=== PATIENT | female | born 1970 | race Caucasian/White ===

== ENCOUNTER 2016-09-26 15:40 | Emergency (ER) | payer BC ==
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
--- NOTE | 2016-09-26 16:14 | ED CLINICAL REPORT ---
Clinical Report - Physicians/Mid Levels [facility] [address] [place] [address] 09/26/2016 15:42 Patient: BENNIE SHAH Time Seen: 1559; upon arrival, initial patient contact, initial documentation, patient care assumed. Arrived- By private vehicle. Historian- patient. HISTORY OF PRESENT ILLNESS Chief Complaint: COUGH, SORE THROAT and SINUS PAIN. This started several months ago and is still present. The illness is described as moderate. No difficulty breathing or fever. She has had nasal congestion, sinus pressure, sinus drainage and ear pain. Additional history - No known contact with a sick individual. No recent travel. Similar symptoms previously: None. Recent medical care: The patient was seen recently in a clinic. ( went to clinic 09/24, dx sinusitis, given rx flonase and doxycycline, abx make her sick, but she can keep them down with zofran). REVIEW OF SYSTEMS The patient has had a moderate, pressure-like frontal and facial headache. She has had nausea. No vomiting or diarrhea. All systems otherwise negative, except as recorded above. PAST HISTORY Negative. SOCIAL HISTORY Never smoker. Not exposed to second-hand smoke at home. No alcohol use or drug use. No recent travel. Is a local resident. FAMILY HISTORY Negative. ADDITIONAL NOTES The nursing notes have been reviewed with agreement regarding the chief complaint, HPI, ROS, PMH and patient medications and allergies. PHYSICAL EXAM Vital Signs: 09/26/2016 16:28 BP: 130/76. HR: 76. RR: 16. O2 saturation: 98%. Temp: 98.4 F. Pain level now: 07/07. Have been reviewed as normal and appear to be correct. Appearance: Alert. No acute distress. Head: Tenderness present to percussion/palpation of the sinuses: mild right and left frontal tenderness, maxillary tenderness, ethmoid tenderness. Eyes: Pupils equal, round and reactive to light. Eyes normal inspection. ENT: Ears normal. Nose abnormal. Pharynx normal. Uvula midline. Neck: Normal inspection. Neck supple. CVS: Normal heart rate and rhythm. Heart sounds normal. Pulses normal. Respiratory: No respiratory distress. Breath sounds normal. Back: Normal inspection. Skin: Skin warm and dry. Normal skin color. No rash. Normal skin turgor. Extremities: Extremities exhibit normal ROM. No lower extremity edema. Neuro: Oriented X 3. No motor deficit. No sensory deficit. PROGRESS AND PROCEDURES Course of Care: tx options discussed, pt not on abx long enough to work, changing abx due to nausea, prescribe more zofran, resistance bacteria if changing abx in middle of course, nedi pot and saline sinus wash, otc nsaid for lowry agreed to get sinus wash, continue current course of tx with more zofran and nsaid for lowry. Patient counseled in person regarding the patient's stable condition and diagnosis. Differential Diagnosis: Other possible considerations: sinusitis, sinus abscess, uri, flu, viral illness, pneumonia, mastoiditis, aoe, aom. Above considerations are based on history and physical exam. Differential diagnosis was discussed with patient. Disposition: Discharged home in good and unchanged condition (16:14). Condition: good and stable. CLINICAL IMPRESSION Acute maxillary, ethmoidal and frontal sinusitis INSTRUCTIONS Drink plenty of fluids for the next 24 hours until better. (continue with current prescriptions as previously directed and discussed, over the counter saline sinus wash and something for headache). Warnings: GENERAL WARNINGS: Return or contact your physician immediately if your condition worsens or changes unexpectedly, if not improving as expected, or if other problems arise. Specifically return if problem worsens. Prescription Medications: Zofran 4 mg: Take 1 orally every six hours as needed for nausea/vomiting. Dispense ten (10). No refills. Substitution is permissible. Follow-up: Follow up with your doctor in about five days as needed. Call for an appointment. Summary of care provided to patient. Understanding of the discharge instructions verbalized by patient. (Electronically signed by Pebbles Knowles A.R.N.P. 09/26/2016 16:43)
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
--- NOTE | 2016-09-26 19:37 | ED MED RECONCILIATION SUMMARY ---
Patient: BENNIE SHAH Medication Reconciliation Report [facility] VisitID: [id number] [address] [place] [address] 46y, F Registration Date/Time: 09/26/2016 Weight: 90.7 kg Height/Length: 67 in. BMI: 31.3 ALLERGIES: Environmental The patient's Home Medications are listed below: THE FOLLOWING MEDICATIONS NEED TO BE RECONCILED: Doxycycline Monohydrate Oral Flonase Nasal The source(s) of the original Home Medication information: Not obtained. The following Medications were given to the patient in the Emergency Department: None. The following Medications were prescribed to the patient: Zofran 4 mg: Take 1 orally every six hours as needed for nausea/vomiting. Dispense ten (10). No refills. Substitution is permissible. -- Pebbles Knowles A.R.N.P.
--- NOTE | 2016-09-26 19:37 | ED MAR SUMMARY ---
..... Medication Administration Record [facility] [address] [id number] Patient: BENNIE SHAH Visit ID: [id number] 46y, F Weight: 90.7 kg Height/Length: 67 in BMI: 31.3 ALLERGIES: Environmental
--- NOTE | 2016-09-26 19:37 | ED MED RECONCILIATION SUMMARY ---
Patient: BENNIE SHAH Medication Reconciliation Report [facility] VisitID: [id number] [address] [place] [address] 46y, F Registration Date/Time: 09/26/2016 Weight: 90.7 kg Height/Length: 67 in. BMI: 31.3 ALLERGIES: Environmental The patient's Home Medications are listed below: THE FOLLOWING MEDICATIONS NEED TO BE RECONCILED: Doxycycline Monohydrate Oral Flonase Nasal The source(s) of the original Home Medication information: Not obtained. The following Medications were given to the patient in the Emergency Department: None. The following Medications were prescribed to the patient: Zofran 4 mg: Take 1 orally every six hours as needed for nausea/vomiting. Dispense ten (10). No refills. Substitution is permissible. -- Pebbles Knowles A.R.N.P.
--- NOTE | 2016-09-26 19:37 | ED DISCHARGE INSTRUCTIONS ---
Patient: BENNIE SHAH General Instructions [facility] VisitID: [id number] [place] [address] 46y, F Registration Date/Time: 09/26/2016 Acute maxillary, ethmoidal and frontal sinusitis INSTRUCTIONS Drink plenty of fluids for the next 24 hours until better. (continue with current prescriptions as previously directed and discussed, over the counter saline sinus wash and something for headache). Warnings: GENERAL WARNINGS: Return or contact your physician immediately if your condition worsens or changes unexpectedly, if not improving as expected, or if other problems arise. Specifically return if problem worsens. Prescription Medications: Zofran 4 mg: Take 1 orally every six hours as needed for nausea/vomiting. Dispense ten (10). No refills. Substitution is permissible. Follow-up: Follow up with your doctor in about five days as needed. Call for an appointment. Summary of care provided to patient. Understanding of the discharge instructions verbalized by patient. ADDITIONAL INFORMATION Sinusitis [Abx Tx] The sinuses are air-filled spaces within the bones of the face. They connect to the inside of the nose. Sinusitis is an inflammation of the tissue lining the sinus cavity. Sinus inflammation can occur during a cold or hay-fever (allergies to pollens and other particles in the air) and cause symptoms of sinus congestion and fullness. A sinus infection causes fever, headache and facial pain. There is usually green or yellow drainage from the nose or into the back of the throat (post-nasal drip). Antibiotics are prescribed to treat this condition. Home Care: Drink plenty of water, hot tea, and other liquids to stay well hydrated. This thins the mucus and promotes sinus drainage. Apply heat to the painful areas of the face. Use a towel soaked in hot water. Or, certified nurse operating room the shower and direct the hot spray onto your face. This is a good way to inhale warm water vapor and get heat on your face at the same time. (Cover your mouth and nose with your hands so you can still breathe as you do this.) Use a vaporizer with products such as VicSunnova VapoRub (contains menthol) at night. Suck on peppermint, menthol or eucalyptus hard candies during the day. An expectorant containing guaifenesin (such as Robitussin), helps to thin the mucus and promote drainage from the sinuses. Qocz-uiw-bggwyrl decongestants may be used unless a similar medicine was prescribed. Nasal sprays work the fastest. Use one that contains phenylephrine (Boris-synephrine, Sinex and others) or oxymetazoline (Afrin). First blow the nose gently to remove mucus, then apply the drops. Do not use these medicines more often than directed on the label or for more than three days or symptoms may worsen. You may also use tablets containing pseudoephedrine (Sudafed). Many sinus remedies combine ingredients, which may increase side effects. Read the labels or ask the pharmacist for help. NOTE: Persons with high blood pressure should not use decongestants. They can raise blood pressure. Antihistamines are useful if allergies are a cause of your sinusitis. The mildest one is chlorpheniramine (available without a prescription). The dose for adults is 8-12mg three times a day. [NOTE: Do not use chlorpheniramine if you have glaucoma or if you are a man with trouble urinating due to an enlarged prostate.] Claritin (loratidine) is an antihistamine that causes less drowsiness and is a good alternative for daytime use. Do not use nasal rinses or irrigation during an acute sinus infection, unless advised by your doctor. Rinsing may spread the infection to other sinuses. You may use acetaminophen (Tylenol) or ibuprofen (Motrin, Advil) to control pain, unless another pain medicine was prescribed. [ NOTE: If you have chronic liver or kidney disease or ever had a stomach ulcer, talk with your doctor before using these medicines.] (Aspirin should never be used in anyone under 18 years of age who is ill with a fever. It may cause severe liver damage.) Finish the full course, even if you are feeling better after a few days. Follow Up with your doctor or this facility in one week or as instructed by our staff if not improving. Get Prompt Medical Attention if any of the following occur: Facial pain or headache becomes more severe Stiff neck Unusual drowsiness or confusion, or not acting like your normal self Swelling of the forehead or eyelids Vision problems including blurred or double vision Fever of 100.4F (38C) or higher, or as directed by your healthcare provider Seizure Ondansetron Oral disintegrating tablet What is this medicine? ONDANSETRON (on REGINALD se zane) is used to treat nausea and vomiting caused by chemotherapy. It is also used to prevent or treat nausea and vomiting after surgery. How should I use this medicine? These tablets are made to dissolve in the mouth. Do not try to push the tablet through the foil backing. With dry hands, peel away the foil backing and gently remove the tablet. Place the tablet in the mouth and allow it to dissolve, then swallow. While you may take these tablets with water, it is not necessary to do so. Talk to your crm functional analyst regarding the use of this medicine in children. Special care may be needed. What side effects may I notice from receiving this medicine? Side effects that you should report to your doctor or health career development coordinator as soon as possible: allergic reactions like skin rash, itching or hives, swelling of the face, lips, or tongue breathing problems dizziness fast or irregular heartbeat feeling faint or lightheaded, falls fever and chills swelling of the hands and feet tightness in the chest Side effects that usually do not require medical attention (report to your doctor or health career development coordinator if they continue or are bothersome): constipation or diarrhea headache What may interact with this medicine? Do not take this medicine with any of the following medications: -apomorphine -cisapride -dofetilide -dronedarone -pimozide -thioridazine -ziprasidone This medicine may also interact with the following medications: -carbamazepine -phenytoin -rifampicin -tramadol -other medicines that prolong the QT interval (cause an abnormal heart rhythm) What if I miss a dose? If you miss a dose, take it as soon as you can. If it is almost time for your next dose, take only that dose. Do not take double or extra doses. Where should I keep my medicine? Keep out of the reach of children. Store between 2 and 30 degrees C (36 and 86 degrees F). Throw away any unused medicine after the expiration date. What should I tell my health care provider before I take this medicine? They need to know if you have any of these conditions: heart disease history of irregular heartbeat liver disease low levels of magnesium or potassium in the blood an unusual or allergic reaction to ondansetron, granisetron, other medicines, foods, dyes, or preservatives or trying to get breast-feeding What should I watch for while using this medicine? Check with your doctor or health career development coordinator as soon as you can if you have any sign of an allergic reaction. You have been given the following additional information: Sinusitis, Abx Tx Ondansetron Oral disintegrating tablet (Electronically signed by Pebbles Knowles A.R.N.P. 09/26/2016 16:43)
--- NOTE | 2016-09-26 19:37 | ED DISCHARGE INSTRUCTIONS ---
Patient: BENNIE SHAH General Instructions [facility] VisitID: [id number] [place] [address] 46y, F Registration Date/Time: 09/26/2016 Acute maxillary, ethmoidal and frontal sinusitis INSTRUCTIONS Drink plenty of fluids for the next 24 hours until better. (continue with current prescriptions as previously directed and discussed, over the counter saline sinus wash and something for headache). Warnings: GENERAL WARNINGS: Return or contact your physician immediately if your condition worsens or changes unexpectedly, if not improving as expected, or if other problems arise. Specifically return if problem worsens. Prescription Medications: Zofran 4 mg: Take 1 orally every six hours as needed for nausea/vomiting. Dispense ten (10). No refills. Substitution is permissible. Follow-up: Follow up with your doctor in about five days as needed. Call for an appointment. Summary of care provided to patient. Understanding of the discharge instructions verbalized by patient. ADDITIONAL INFORMATION Sinusitis [Abx Tx] The sinuses are air-filled spaces within the bones of the face. They connect to the inside of the nose. Sinusitis is an inflammation of the tissue lining the sinus cavity. Sinus inflammation can occur during a cold or hay-fever (allergies to pollens and other particles in the air) and cause symptoms of sinus congestion and fullness. A sinus infection causes fever, headache and facial pain. There is usually green or yellow drainage from the nose or into the back of the throat (post-nasal drip). Antibiotics are prescribed to treat this condition. Home Care: Drink plenty of water, hot tea, and other liquids to stay well hydrated. This thins the mucus and promotes sinus drainage. Apply heat to the painful areas of the face. Use a towel soaked in hot water. Or, studio engineer the shower and direct the hot spray onto your face. This is a good way to inhale warm water vapor and get heat on your face at the same time. (Cover your mouth and nose with your hands so you can still breathe as you do this.) Use a vaporizer with products such as VicFerevo VapoRub (contains menthol) at night. Suck on peppermint, menthol or eucalyptus hard candies during the day. An expectorant containing guaifenesin (such as Robitussin), helps to thin the mucus and promote drainage from the sinuses. Pfiy-cke-crwvayj decongestants may be used unless a similar medicine was prescribed. Nasal sprays work the fastest. Use one that contains phenylephrine (Boris-synephrine, Sinex and others) or oxymetazoline (Afrin). First blow the nose gently to remove mucus, then apply the drops. Do not use these medicines more often than directed on the label or for more than three days or symptoms may worsen. You may also use tablets containing pseudoephedrine (Sudafed). Many sinus remedies combine ingredients, which may increase side effects. Read the labels or ask the pharmacist for help. NOTE: Persons with high blood pressure should not use decongestants. They can raise blood pressure. Antihistamines are useful if allergies are a cause of your sinusitis. The mildest one is chlorpheniramine (available without a prescription). The dose for adults is 8-12mg three times a day. [NOTE: Do not use chlorpheniramine if you have glaucoma or if you are a man with trouble urinating due to an enlarged prostate.] Claritin (loratidine) is an antihistamine that causes less drowsiness and is a good alternative for daytime use. Do not use nasal rinses or irrigation during an acute sinus infection, unless advised by your doctor. Rinsing may spread the infection to other sinuses. You may use acetaminophen (Tylenol) or ibuprofen (Motrin, Advil) to control pain, unless another pain medicine was prescribed. [ NOTE: If you have chronic liver or kidney disease or ever had a stomach ulcer, talk with your doctor before using these medicines.] (Aspirin should never be used in anyone under 18 years of age who is ill with a fever. It may cause severe liver damage.) Finish the full course, even if you are feeling better after a few days. Follow Up with your doctor or this facility in one week or as instructed by our staff if not improving. Get Prompt Medical Attention if any of the following occur: Facial pain or headache becomes more severe Stiff neck Unusual drowsiness or confusion, or not acting like your normal self Swelling of the forehead or eyelids Vision problems including blurred or double vision Fever of 100.4F (38C) or higher, or as directed by your healthcare provider Seizure Ondansetron Oral disintegrating tablet What is this medicine? ONDANSETRON (on REGINALD se zane) is used to treat nausea and vomiting caused by chemotherapy. It is also used to prevent or treat nausea and vomiting after surgery. How should I use this medicine? These tablets are made to dissolve in the mouth. Do not try to push the tablet through the foil backing. With dry hands, peel away the foil backing and gently remove the tablet. Place the tablet in the mouth and allow it to dissolve, then swallow. While you may take these tablets with water, it is not necessary to do so. Talk to your lining ironer regarding the use of this medicine in children. Special care may be needed. What side effects may I notice from receiving this medicine? Side effects that you should report to your doctor or health intensive care ambulance paramedic as soon as possible: allergic reactions like skin rash, itching or hives, swelling of the face, lips, or tongue breathing problems dizziness fast or irregular heartbeat feeling faint or lightheaded, falls fever and chills swelling of the hands and feet tightness in the chest Side effects that usually do not require medical attention (report to your doctor or health intensive care ambulance paramedic if they continue or are bothersome): constipation or diarrhea headache What may interact with this medicine? Do not take this medicine with any of the following medications: -apomorphine -cisapride -dofetilide -dronedarone -pimozide -thioridazine -ziprasidone This medicine may also interact with the following medications: -carbamazepine -phenytoin -rifampicin -tramadol -other medicines that prolong the QT interval (cause an abnormal heart rhythm) What if I miss a dose? If you miss a dose, take it as soon as you can. If it is almost time for your next dose, take only that dose. Do not take double or extra doses. Where should I keep my medicine? Keep out of the reach of children. Store between 2 and 30 degrees C (36 and 86 degrees F). Throw away any unused medicine after the expiration date. What should I tell my health care provider before I take this medicine? They need to know if you have any of these conditions: heart disease history of irregular heartbeat liver disease low levels of magnesium or potassium in the blood an unusual or allergic reaction to ondansetron, granisetron, other medicines, foods, dyes, or preservatives or trying to get breast-feeding What should I watch for while using this medicine? Check with your doctor or health intensive care ambulance paramedic as soon as you can if you have any sign of an allergic reaction. You have been given the following additional information: Sinusitis, Abx Tx Ondansetron Oral disintegrating tablet (Electronically signed by Pebbles Knowles A.R.N.P. 09/26/2016 16:43)
--- NOTE | 2016-09-26 19:37 | ED MAR SUMMARY ---
..... Medication Administration Record [facility] [address] [place], [place] [id number] Patient: BENNIE SHAH Visit ID: [id number] 46y, F Weight: 90.7 kg Height/Length: 67 in BMI: 31.3 ALLERGIES: Environmental
== END 2016-09-26 16:25 | disposition home or self-care (01) ==
LOC: ED SRH 15:40
DX: J01.00 Acute maxillary sinusitis, unspecified (principal); J01.20 Acute ethmoidal sinusitis, unspecified; J01.10 Acute frontal sinusitis, unspecified

== ENCOUNTER 2016-10-06 10:09 | Emergency (ER) | payer BC ==
--- NOTE | 2016-10-06 11:38 | ED CLINICAL REPORT ---
Clinical Report - Physicians/Mid Levels [facility] [address] [place] [address] 10/06/2016 10:11 Patient: BENNIE SHAH Time Seen: 10:21. Arrived- By private vehicle. Historian- patient. HISTORY OF PRESENT ILLNESS Chief Complaint: SINUS PAIN. EAR ACHE. This started about 2 weeks ago and is still present. It was gradual in onset and has been constant and waxing/waning. The illness is described as severe. No cough, sputum production, difficulty breathing or chest discomfort or pain. No fever or chills. She has had nasal congestion, sinus pressure and ear pain. Similar symptoms previously: Recent medical care: The patient was seen recently at this facility and another facility. Seen for similar symptoms. Diagnosis: sinusitis. ( she was prescribed doxycycline but says she has not been able to "keep this down" it causes nausea and she has been vomiting it up. Additionally she was given a prescription for Flonase.). REVIEW OF SYSTEMS No chills, fever, sweats, calf pain or chest pain. No cough, difficulty breathing, pedal edema, palpitations or abdominal pain. No constipation, diarrhea, vomiting or urinary problems. The patient has had nausea (she attributes this to the doxycycline). All systems otherwise negative, except as recorded above. PAST HISTORY Problems: Sinus Problems. Ear Infection. Medications: Zyrtec otc. Doxycycline Monohydrate Oral. Flonase Nasal. Allergies: Environmental. SOCIAL HISTORY Never smoker. No alcohol use or drug use. FAMILY HISTORY No significant family medical history. ADDITIONAL NOTES The nursing notes have been reviewed. PHYSICAL EXAM Vital Signs: 10/06/2016 10:26 BP: 128/82. HR: 54. RR: 20. O2 saturation: 99%. Temp: 98.2 F. Pain level now: 1010. Have been reviewed. Appearance: Alert. Head: Tenderness present to percussion/palpation of the sinuses. Eyes: Pupils equal, round and reactive to light. ENT: Abnormal ear exam. (bilateral TMs retracted without effusion). Uvula midline. No pharyngeal erythema or tonsillar exudate. (harrington mucous membranes with posterior lymphoid hyperplasia). Neck: Normal inspection. Neck supple. No lymphadenopathy. CVS: Normal heart rate and rhythm. Heart sounds normal. Respiratory: No respiratory distress. Breath sounds normal. Abdomen: Soft and nontender. No organomegaly. Back: Normal inspection. Skin: Skin warm and dry. Normal skin color. No rash. Normal skin turgor. Extremities: Extremities exhibit normal ROM. No calf tenderness. No lower extremity edema. PROGRESS AND PROCEDURES Course of Care: Patient is stable. Patient/family counseled. Old medical records reviewed. Disposition: Discharged. Condition: stable. CLINICAL IMPRESSION Sinusitis Right and left eustachian tube dysfunction INSTRUCTIONS Drink plenty of fluids. Warnings: Further evaluation is necessary. GENERAL WARNINGS: Return or contact your physician immediately if your condition worsens or changes unexpectedly, if not improving as expected, or if other problems arise. Your Current Medications: STOP TAKING THE FOLLOWING MEDICATIONS: Doxycycline Monohydrate Oral. CONTINUE TAKING THE FOLLOWING MEDICATIONS: Flonase Nasal. Prescription Medications: Zithromax 250 mg tablets: take 2 orally today, followed by 1 daily for the next 4 days. No refills. Substitution is permissible. OTC Medications: Afrin nasal spray (Available over the counter): 1 spray to each nostril twice daily for 3 days, for congestion. Follow-up: Follow up with your doctor CARROLL MALHOTRA in three days. Call for an appointment. Understanding of the discharge instructions verbalized by patient. (Electronically signed by Tommy Khan MD 10/06/2016 15:34)
--- NOTE | 2016-10-06 11:38 | ED NURSING NOTES ---
Clinical Report - Nurses [facility] [address] [place] [address] 10/06/2016 10:11 Patient: BENNIE SHAH TRIAGE Triage time 10:26. Acuity: LEVEL 3. Chief Complaint: RIGHT EAR PAIN and LEFT EAR PAIN and (Seen here and the clinic for sinus infection. Not getting better.). Alert. No acute distress. SEPSIS SCREEN: Sepsis Screen: negative. Negative (no infection suspected/documented). --10:33 Yolanda Winter R.N. 10:26 10/06/16. BP: 128/82. HR: 54. RR: 20. O2 saturation: 99%. Temp: 98.2 F. Pain level now: 04/06. --10:33 Yolanda Winter R.N. 10:10/06/16. BP: 128/82. HR: 54. RR: 20. O2 saturation: 99%. Temp: 98.2 F. Pain level now: 04/06. --10:33 Yolanda Winter R.N. Weight: 90.7 kg stated. Height/Length: 69 inches Per Patient. BMI: 29.5. --10:30 Yolanda Winter R.N. Medications Doxycycline Monohydrate Oral. Flonase Nasal. --10:28 Yolanda Winter R.N. Zyrtec otc. --11:47 Yolanda Winter R.N. Medication/allergy information source: the patient. --10:33 Yolanda Winter R.N. Allergies Environmental. --10:28 Yolanda Winter R.N. History Arrived by private vehicle. Historian: patient. Historian not family. Accompanied by family. Primary physician (jack). Onset. (3 weeks ago). She has had ear drainage, sinus pain and a headache. Treatment COO: (excedrine, tylenol, zofran). PAST MEDICAL HX: Immunizations: status is unknown. The patient has had a hysterectomy. SOCIAL HX: Smoker- current status unknown. No alcohol use or drug use. FALL RISK ASSESSMENT: Fall risk assessment completed. No fall risk identified. NUTRITIONAL RISK ASSESSMENT: The nutritional risk assessment revealed no deficiencies. FUNCTIONAL ASSESSMENT: Functional assessment: no impairments noted. LEARNING NEEDS ASSESSMENT: The learning needs assessment revealed no barriers. SKIN INTEGRITY ASSESSMENT: Skin integrity risk assessment completed. No skin integrity risk identified. --10:33 Yolanda Winter R.N. PROBLEMS: Sinusitis. Sinus Problems. Ear Infection. --10:31 Yolanda Winter R.N. Interventions ID band on patient. To room. --10:33 Yolanda Winter R.N. PHYSICAL ASSESSMENT Ambulatory to room. GENERAL / NEURO / PSYCH: Appears in pain. RESPIRATORY: Respirations not labored. CVS: Capillary refill less than 2 seconds. SKIN: Skin is warm and dry. --10:33 Yolanda Winter R.N. NURSING PROGRESS NOTES Head of bed elevated. Two patient identifiers checked. Call light placed in reach. Side rails up x 2. Bed placed in lowest position. Brakes of bed on. Patient ready for evaluation. --10:34 Yolanda Winter R.N. DISPOSITION / DISCHARGE 11:47 10/06/16. BP: 146/66. HR: 76. RR: 20. O2 saturation: 98%. Temp: deferred. Pain level now: 04/06. 10:26 10/06/16. BP: 128/82. HR: 54. RR: 20. O2 saturation: 99%. Temp: 98.2 F. Pain level now: 04/06. --11:48 Yolanda Winter R.N. Condition at departure: unchanged. No learning barriers present. Reviewed medication(s) side effects, precautions, dosing and course information. Prescription(s) given to the patient. Patient verbalized understanding. Written instructions provided in Wolof. The patient was discharged home and accompanied by adult basic education teacher. She left the Emergency Department ambulatory and via private vehicle. Sexual Assault Response Coordinator driving. Medication list reviewed and validated. --11:56 Yolanda Winter R.N. Locked/Released at 10/06/2016 11:57 by Yolanda Winter R.N.
--- NOTE | 2016-10-06 11:38 | ED NURSING NOTES ---
Clinical Report - Nurses [facility] [address] [place] [address] 10/06/2016 10:11 Patient: BENNIE SHAH TRIAGE Triage time 10:26. Acuity: LEVEL 3. Chief Complaint: RIGHT EAR PAIN and LEFT EAR PAIN and (Seen here and the clinic for sinus infection. Not getting better.). Alert. No acute distress. SEPSIS SCREEN: Sepsis Screen: negative. Negative (no infection suspected/documented). --10:33 Yolanda Winter R.N. 10:26 10/06/16. BP: 128/82. HR: 54. RR: 20. O2 saturation: 99%. Temp: 98.2 F. Pain level now: 04/06. --10:33 Yolanda Winter R.N. 10:10/06/16. BP: 128/82. HR: 54. RR: 20. O2 saturation: 99%. Temp: 98.2 F. Pain level now: 04/06. --10:33 Yolanda Winter R.N. Weight: 90.7 kg stated. Height/Length: 69 inches Per Patient. BMI: 29.5. --10:30 Yolanda Winter R.N. Medications Doxycycline Monohydrate Oral. Flonase Nasal. --10:28 Yolanda Winter R.N. Zyrtec otc. --11:47 Yolanda Winter R.N. Medication/allergy information source: the patient. --10:33 Yolanda Winter R.N. Allergies Environmental. --10:28 Yolanda Winter R.N. History Arrived by private vehicle. Historian: patient. Historian not family. Accompanied by family. Primary physician (jack). Onset. (3 weeks ago). She has had ear drainage, sinus pain and a headache. Treatment [facility]: (excedrine, tylenol, zofran). PAST MEDICAL HX: Immunizations: status is unknown. The patient has had a hysterectomy. SOCIAL HX: Smoker- current status unknown. No alcohol use or drug use. FALL RISK ASSESSMENT: Fall risk assessment completed. No fall risk identified. NUTRITIONAL RISK ASSESSMENT: The nutritional risk assessment revealed no deficiencies. FUNCTIONAL ASSESSMENT: Functional assessment: no impairments noted. LEARNING NEEDS ASSESSMENT: The learning needs assessment revealed no barriers. SKIN INTEGRITY ASSESSMENT: Skin integrity risk assessment completed. No skin integrity risk identified. --10:33 Yolanda Winter R.N. PROBLEMS: Sinusitis. Sinus Problems. Ear Infection. --10:31 Yolanda Winter R.N. Interventions ID band on patient. To room. --10:33 Yolanda Winter R.N. PHYSICAL ASSESSMENT Ambulatory to room. GENERAL / NEURO / PSYCH: Appears in pain. RESPIRATORY: Respirations not labored. CVS: Capillary refill less than 2 seconds. SKIN: Skin is warm and dry. --10:33 Yolanda Winter R.N. NURSING PROGRESS NOTES Head of bed elevated. Two patient identifiers checked. Call light placed in reach. Side rails up x 2. Bed placed in lowest position. Brakes of bed on. Patient ready for evaluation. --10:34 Yolanda Winter R.N. DISPOSITION / DISCHARGE 11:47 10/06/16. BP: 146/66. HR: 76. RR: 20. O2 saturation: 98%. Temp: deferred. Pain level now: 04/06. 10:26 10/06/16. BP: 128/82. HR: 54. RR: 20. O2 saturation: 99%. Temp: 98.2 F. Pain level now: 04/06. --11:48 Yolanda Winter R.N. Condition at departure: unchanged. No learning barriers present. Reviewed medication(s) side effects, precautions, dosing and course information. Prescription(s) given to the patient. Patient verbalized understanding. Written instructions provided in Welsh. The patient was discharged home and accompanied by print machine operator. She left the Emergency Department ambulatory and via private vehicle. Gas Turbine Powerplant Mechanic driving. Medication list reviewed and validated. --11:56 Yolanda Winter R.N. Locked/Released at 10/06/2016 11:57 by Yolanda Winter R.N.
--- NOTE | 2016-10-06 15:34 | ED MAR SUMMARY ---
..... Medication Administration Record [facility] [address] [place], [place] [id number] Patient: BENNIE SHAH Visit ID: [id number] 46y, F Weight: 90.7 kg Height/Length: 69 in BMI: 29.5 ALLERGIES: Environmental
--- NOTE | 2016-10-06 15:34 | ED MED RECONCILIATION SUMMARY ---
Patient: BENNIE SHAH Medication Reconciliation Report [facility] VisitID: [id number] [address] [place] [address] 46y, F Registration Date/Time: 10/06/2016 Weight: 90.7 kg Height/Length: 69 in. BMI: 29.5 ALLERGIES: Environmental The patient's Home Medications are listed below: STOP TAKING THE FOLLOWING MEDICATIONS: Doxycycline Monohydrate Oral CONTINUE TAKING THE FOLLOWING MEDICATIONS: Flonase Nasal THE FOLLOWING MEDICATIONS NEED TO BE RECONCILED: Zyrtec otc The source(s) of the original Home Medication information: patient The following Medications were given to the patient in the Emergency Department: None. The following Medications were prescribed to the patient: Afrin nasal spray (Available over the counter): 1 spray to each nostril twice daily for 3 days, for congestion. -- Tommy Khan MD Zithromax 250 mg tablets: take 2 orally today, followed by 1 daily for the next 4 days. No refills. Substitution is permissible. -- Tommy Khan MD
--- NOTE | 2016-10-06 15:34 | ED MED RECONCILIATION SUMMARY ---
Patient: BENNIE SHAH Medication Reconciliation Report [facility] VisitID: [id number] [address] [place] [address] 46y, F Registration Date/Time: 10/06/2016 Weight: 90.7 kg Height/Length: 69 in. BMI: 29.5 ALLERGIES: Environmental The patient's Home Medications are listed below: STOP TAKING THE FOLLOWING MEDICATIONS: Doxycycline Monohydrate Oral CONTINUE TAKING THE FOLLOWING MEDICATIONS: Flonase Nasal THE FOLLOWING MEDICATIONS NEED TO BE RECONCILED: Zyrtec otc The source(s) of the original Home Medication information: patient The following Medications were given to the patient in the Emergency Department: None. The following Medications were prescribed to the patient: Afrin nasal spray (Available over the counter): 1 spray to each nostril twice daily for 3 days, for congestion. -- Tommy Khan MD Zithromax 250 mg tablets: take 2 orally today, followed by 1 daily for the next 4 days. No refills. Substitution is permissible. -- Tommy Khan MD
--- NOTE | 2016-10-06 15:34 | ED DISCHARGE INSTRUCTIONS ---
Patient: BENNIE SHAH General Instructions [facility] VisitID: [id number] [place] [address] 46y, F Registration Date/Time: 10/06/2016 Sinusitis Right and left eustachian tube dysfunction INSTRUCTIONS Drink plenty of fluids. Warnings: Further evaluation is necessary. GENERAL WARNINGS: Return or contact your physician immediately if your condition worsens or changes unexpectedly, if not improving as expected, or if other problems arise. Your Current Medications: STOP TAKING THE FOLLOWING MEDICATIONS: Doxycycline Monohydrate Oral. CONTINUE TAKING THE FOLLOWING MEDICATIONS: Flonase Nasal. Prescription Medications: Zithromax 250 mg tablets: take 2 orally today, followed by 1 daily for the next 4 days. No refills. Substitution is permissible. OTC Medications: Afrin nasal spray (Available over the counter): 1 spray to each nostril twice daily for 3 days, for congestion. Follow-up: Follow up with your doctor CARROLL MALHOTRA in three days. Call for an appointment. Understanding of the discharge instructions verbalized by patient. ADDITIONAL INFORMATION Sinusitis [Abx Tx] The sinuses are air-filled spaces within the bones of the face. They connect to the inside of the nose. Sinusitis is an inflammation of the tissue lining the sinus cavity. Sinus inflammation can occur during a cold or hay-fever (allergies to pollens and other particles in the air) and cause symptoms of sinus congestion and fullness. A sinus infection causes fever, headache and facial pain. There is usually green or yellow drainage from the nose or into the back of the throat (post-nasal drip). Antibiotics are prescribed to treat this condition. Home Care: Drink plenty of water, hot tea, and other liquids to stay well hydrated. This thins the mucus and promotes sinus drainage. Apply heat to the painful areas of the face. Use a towel soaked in hot water. Or, manufacturing systems engineer the shower and direct the hot spray onto your face. This is a good way to inhale warm water vapor and get heat on your face at the same time. (Cover your mouth and nose with your hands so you can still breathe as you do this.) Use a vaporizer with products such as [employer] VapoRub (contains menthol) at night. Suck on peppermint, menthol or eucalyptus hard candies during the day. An expectorant containing guaifenesin (such as Robitussin), helps to thin the mucus and promote drainage from the sinuses. [id number] decongestants may be used unless a similar medicine was prescribed. Nasal sprays work the fastest. Use one that contains phenylephrine (Boris-synephrine, Sinex and others) or oxymetazoline (Afrin). First blow the nose gently to remove mucus, then apply the drops. Do not use these medicines more often than directed on the label or for more than three days or symptoms may worsen. You may also use tablets containing pseudoephedrine (Sudafed). Many sinus remedies combine ingredients, which may increase side effects. Read the labels or ask the pharmacist for help. NOTE: Persons with high blood pressure should not use decongestants. They can raise blood pressure. Antihistamines are useful if allergies are a cause of your sinusitis. The mildest one is chlorpheniramine (available without a prescription). The dose for adults is 8-12mg three times a day. [NOTE: Do not use chlorpheniramine if you have glaucoma or if you are a man with trouble urinating due to an enlarged prostate.] Claritin (loratidine) is an antihistamine that causes less drowsiness and is a good alternative for daytime use. Do not use nasal rinses or irrigation during an acute sinus infection, unless advised by your doctor. Rinsing may spread the infection to other sinuses. You may use acetaminophen (Tylenol) or ibuprofen (Motrin, Advil) to control pain, unless another pain medicine was prescribed. [ NOTE: If you have chronic liver or kidney disease or ever had a stomach ulcer, talk with your doctor before using these medicines.] (Aspirin should never be used in anyone under 18 years of age who is ill with a fever. It may cause severe liver damage.) Finish the full course, even if you are feeling better after a few days. Follow Up with your doctor or this facility in one week or as instructed by our staff if not improving. Get Prompt Medical Attention if any of the following occur: Facial pain or headache becomes more severe Stiff neck Unusual drowsiness or confusion, or not acting like your normal self Swelling of the forehead or eyelids Vision problems including blurred or double vision Fever of 100.4F (38C) or higher, or as directed by your healthcare provider Seizure Fluid In The Middle Ear [Child, Serous Otitis] Earaches can happen without an infection. This can occur when air and fluid build up behind the eardrum causing pain and reduced hearing. This is called serous otitis media. It means fluid in the middle ear. It can happen when you have a cold if congestion blocks the passage that drains the middle ear (eustachian tube). It may also occur with nasal allergies, gastric acid reflux (GERD) or after a bacterial middle ear infection. Adenoid glands are located in the back of the throat near the opening of the eustachian tube. They commonly swell in children and can block the eustachian tube. The pain may come and go. You may hear clicking or popping sounds when chewing or swallowing. It often takes from several weeks up to three months for the fluid to clear on its own. Oral pain relievers and ear drops help with pain. Decongestants and antihistamines can be tried but their effect is not always helpful. This condition does not respond to antibiotics since there is no infection. If there has been no improvement after three months, surgery may be used to drain the fluid and insert a small tube in the eardrum to permit continued drainage. Because the middle ear fluid can become infected, it is important to watch for signs of an ear infection (see warning signs below), which may develop later. Home Care: FLUIDS: For infants under 1 year old, continue regular formula or breast feedings. If there is a fever, give oral rehydration solution between feedings. (You can buy this as Pedialyte, Infalyte or Rehydralyte from grocery and drug stores. No prescription is required.). For children over 1 year old, give plenty of fluids like water, juice, 7-Up, rosanna-zuly, lemonade, Eddie-aid or popsicles. EATING: If your child doesn't want to eat solid foods, it's okay for a few days, as long as she/he drinks lots of fluid. PAIN or FEVER CONTROL: Use acetaminophen (Tylenol) for fever, fussiness or discomfort. In infants over six months of age, you may use ibuprofen (Children's Motrin) instead of Tylenol. [NOTE: If your child has chronic liver or kidney disease or ever had a stomach ulcer or GI bleeding, talk with your doctor before using these medicines.] (Aspirin should never be used in anyone under 18 years of age who is ill with a fever. It may cause severe liver damage.) EAR DROPS: Pain relieving ear drops may be prescribed. Use as directed. If you were not given a prescription for these ear drops, and if ibuprofen alone is not controlling pain, contact your doctor. Follow Up with your doctor or as advised if your child is not feeling better after three days. Get Prompt Medical Attention if any of the following occur: Ear pain gets worse or does not start to improve after three days of treatment Fever of 100.4F (38C) oral or 101.4F (38.5C) rectal or higher, not better with fever medication Unusual fussiness, drowsiness or confusion No tears when crying; "sunken" eyes or dry mouth; no wet diapers for 8 hours in infants, reduced urine output in older children No wet diapers for 8 hours, no tears when crying or dry mouth Headache, neck pain or stiff neck New rash appears Frequent diarrhea or vomiting Fluid or bloody drainage from the ear Convulsion (seizure) Azithromycin Oral tablet What is this medicine? AZITHROMYCIN (az ith nehemiah MYE sin) is a macrolide antibiotic. It is used to treat or prevent certain kinds of bacterial infections. It will not work for colds, flu, or other viral infections. How should I use this medicine? Take this medicine by mouth with a full glass of water. Follow the directions on the prescription label. The tablets can be taken with food or on an empty stomach. If the medicine upsets your stomach, take it with food. Take your medicine at regular intervals. Do not take your medicine more often than directed. Take all of your medicine as directed even if you think your are better. Do not skip doses or stop your medicine early. Talk to your assistant distribution manager regarding the use of this medicine in children. Special care may be needed. What side effects may I notice from receiving this medicine? Side effects that you should report to your doctor or health critical care physician assistant as soon as possible: allergic reactions like skin rash, itching or hives, swelling of the face, lips, or tongue confusion, nightmares or hallucinations dark urine difficulty breathing hearing loss irregular heartbeat or chest pain pain or difficulty passing urine redness, blistering, peeling or loosening of the skin, including inside the mouth white patches or sores in the mouth yellowing of the eyes or skin Side effects that usually do not require medical attention (report to your doctor or health critical care physician assistant if they continue or are bothersome): diarrhea dizziness, drowsiness headache stomach upset or vomiting tooth discoloration vaginal irritation What may interact with this medicine? Do not take this medicine with any of the following medications: lincomycin This medicine may also interact with the following medications: amiodarone antacids cyclosporine digoxin magnesium nelfinavir phenytoin warfarin What if I miss a dose? If you miss a dose, take it as soon as you can. If it is almost time for your next dose, take only that dose. Do not take double or extra doses. Where should I keep my medicine? Keep out of the reach of children. Store at room temperature between 15 and 30 degrees C (59 and 86 degrees F). Throw away any unused medicine after the expiration date. What should I tell my health care provider before I take this medicine? They need to know if you have any of these conditions: kidney disease liver disease irregular heartbeat or heart disease an unusual or allergic reaction to azithromycin, erythromycin, other macrolide antibiotics, foods, dyes, or preservatives or trying to get breast-feeding What should I watch for while using this medicine? Tell your doctor or health critical care physician assistant if your symptoms do not improve. Do not treat diarrhea with over the counter products. Contact your doctor if you have diarrhea that lasts more than 2 days or if it is severe and watery. This medicine can make you more sensitive to the sun. Keep out of the sun. If you cannot avoid being in the sun, wear protective clothing and use sunscreen. Do not use sun lamps or tanning beds/booths. You have been given the following additional information: Sinusitis, Abx Tx Earache W/O Infection (Child) Azithromycin Oral tablet (Electronically signed by Tommy Khan MD 10/06/2016 15:34)
--- NOTE | 2016-10-06 15:34 | ED MAR SUMMARY ---
..... Medication Administration Record [facility] [address] [place] [place], [place] [id number] Patient: BENNIE SHAH Visit ID: [id number] 46y, F Weight: 90.7 kg Height/Length: 69 in BMI: 29.5 ALLERGIES: Environmental
== END 2016-10-06 12:00 | disposition home or self-care (01) ==
LOC: ED SRH 10:09
DX: J32.9 Chronic sinusitis, unspecified (principal); H69.93 Unspecified Eustachian tube disorder, bilateral; Z79.899 Other long term (current) drug therapy; Z91.09 Other allergy status, other than to drugs and biological substances